=== PATIENT | male | born 1965 | race Native Hawaiian/Other Pacific Islander ===

== ENCOUNTER 2020-03-30 16:10 | Outpatient (CLI) | payer BC, OTHER | END 2020-03-30 21:48 | disposition home or self-care (01) | LOC: LAB 16:10 | DX: R50.9 Fever, unspecified (principal) | CPT/HCPCS: 87635; G2023; U0002 ==

== ENCOUNTER 2022-04-26 18:32 | Emergency (ER) | payer BC ==
[~2022-04-26] VITALS: Ht 170.2 cm; Wt 99.8 kg
[2022-04-26 20:07] LABS: PLATELET COUNT 211 K/uL (142-355)
[2022-04-26 20:10] LABS: POTASSIUM 3.9 mmol/L (3.6-5.2)
[2022-04-26 21:08] VITALS: BP 141/88; TEMP 97.9
== END 2022-04-26 21:08 | disposition home or self-care (01) ==
LOC: ED 18:32
PROVIDERS: Emergency Medicine
DX: T78.40XA Allergy, unspecified, initial encounter (principal); T46.7X5A Adverse effect of peripheral vasodilators, initial encounter; Y92.89 Other specified places as the place of occurrence of the external cause
CPT/HCPCS: 36415; 80053; 85027; 93005; 96360; 96374; 96375; 99284; J1200; J2060; J2930